=== PATIENT | male | born 1935 | race Caucasian/White ===

== ENCOUNTER 2022-06-08 12:58 | Outpatient (CLI) | payer MEDICARE | END 2022-06-08 12:59 | disposition home or self-care (01) | LOC: CSHWCC 12:58 | PROVIDERS: ATTEND Nurse Practitioner Family | DX: I87.311 Chronic venous hypertension (idiopathic) with ulcer of right lower extremity (principal); L97.211 Non-pressure chronic ulcer of right calf limited to breakdown of skin; R60.0 Localized edema | CPT/HCPCS: 11042; 97139; G0463; 99204 ==

== ENCOUNTER 2022-06-22 13:51 | Outpatient (CLI) | payer MEDICARE | END 2022-06-22 13:52 | disposition home or self-care (01) | LOC: CSHWCC 13:51 | PROVIDERS: ATTEND Nurse Practitioner Family | DX: I87.311 Chronic venous hypertension (idiopathic) with ulcer of right lower extremity (principal); L97.211 Non-pressure chronic ulcer of right calf limited to breakdown of skin; R60.0 Localized edema ==